=== PATIENT | male | born 1965 | race Caucasian/White ===

== ENCOUNTER → 2020-12-13 08:02 | Outpatient (CLI) | payer SELFPAY, OTHER ==
--- NOTE | 2020-12-13 08:12 | CT_ITS ---
STUDY: CT RIGHT RIGHT LOWER EXTREMITY WITHOUT CONTRAST REASON FOR EXAM: Right knee osteoarthritis, surgical planning. TECHNIQUE: Transaxial CT imaging of the right lower extremity was performed. Coronal and sagittal images were reformatted. Individualized dose optimization techniques were used for this CT. COMPARISON: None. FINDINGS: Knee: There are marginal osteophytes and moderately severe joint space narrowing of the medial femorotibial compartment (coronal reconstructions 27-33). There are small marginal osteophytes of the lateral femoral condyle with preservation of joint space of the lateral femorotibial compartment. There are marginal osteophytes of the patellofemoral compartment with preservation of joint space. Normal proximal tibiofibular articulation. There is a small joint effusion. There are are intra-articular bodies in the distal popliteus tendon sheath (axial images 352-386). The quadriceps tendon is grossly normal. The patellar tendon is grossly normal. Normal Hoffa''s fat pad. There is a popliteal cyst measuring 8.1 cm in length (sagittal reconstruction 50). There is atrophy with fat replacement of the proximal peroneus longus muscle (sagittal reconstruction 20). There is vascular calcification. Hip: There are small marginal osteophytes of the femoral head, subchondral cystic change of the acetabulum and moderate joint space narrowing of the superior medial right hip joint (coronal reconstruction 67). Ankle: There are small marginal osteophytes of the anterior aspect of the tibiotalar articulation without joint space narrowing. Normal posterior subtalar, talonavicular and calcaneocuboid articulations. There is a cyst in the dorsal aspect of the navicular (sagittal reconstruction 28). There is a small plantar calcaneal enthesophyte. CT/Extremity Lower without Contra IMPRESSION: Osteoarthritis of the right knee. Electronically Signed: James Fermin MD at 14:28 EDT Tel , Service support ,
== END ==
PROVIDERS: PCP Orthopaedic Surgery; Referring Provider Orthopaedic Surgery; Visit Provider Orthopaedic Surgery
DX: M17.11 Unilateral primary osteoarthritis, right knee (principal)
CPT/HCPCS: 73700

== ENCOUNTER 2020-12-27 11:31 | Observation (INO) | payer SELFPAY, OTHER ==
[2020-12-27] VITALS (11 sets, daily range): BP systolic 128–151; BP diastolic 76–92; PULSE 60–72; RESP 15–18; TEMP 36.3–36.7; O2SAT 96–100; BMI 36.4
[2020-12-27 10:15] LABS: Bedside Glucose 224 mg/dL (70-110)
[2020-12-27] MEDS: Scopolamine 1mg/72hr Patch 1 PATCH TD (10:17)
[2020-12-27] MEDS: Celecoxib 200 MG Capsule 400 MG PO (10:18)
[2020-12-27] MEDS: Acetaminophen 500 MG Tablet 1000 MG PO ×2 (10:19→17:42)
[2020-12-27 10:40] LABS: Anion Gap 6 (5-15); BUN 12 mg/dL (7-18); BUN/Creat Ratio 15.6 RATIO (10-20); Calcium,Total 8.3 mg/dL (8.5-10.1); Chloride 104 mmol/L (98-107); Creatinine, Serum 0.77 mg/dL (0.70-1.30); EST Glomerular Filtration Rate 110 mL/min (>60); Est Glom Filt Rate - Afr Amer 134 mL/min (>60); Estimated Creatinine Clearance 95.52 ml/min; Glucose 225 mg/dL (74-106); Magnesium 2.2 mg/dL (1.6-2.6); Potassium 4.2 mmol/L (3.5-5.1); Sodium Level 138 mmol/L (136-145)
[2020-12-27] MEDS: Insulin Lispro 100 UNIT/ML INSULN.PEN SC ×2 (10:54→21:44)
[2020-12-27] MEDS: Lactated Ringers 1,000 ML 100 ML IV ×2 (10:55→12:30)
[2020-12-27] MEDS: Cefazolin 2 GM in 0.9% Normal Saline 100 ML IV (11:20)
--- NOTE | 2020-12-27 11:29 | RAD_ITS ---
STUDY: X-RAY - RIGHT KNEE REASON FOR EXAM: Male, 55 years old. Post op -- AP and Lateral xray of operative knee in PACU TECHNIQUE: 2 view(s) of the knee. COMPARISON: None. FINDINGS: Normal visualized distal femur. Normal visualized proximal tibia and fibula. Normal proximal tibiofibular articulation. The patient is status post total knee replacement. There is good alignment. Postoperative soft tissue changes. RAD/Knee 1 or 2 Views IMPRESSION: Status post total knee replacement. There is good alignment. Postoperative soft tissue changes. Electronically Signed: Emanuel Langley MD at 9:01 EDT , Service support ,
--- NOTE | 2020-12-27 11:30 | KNEE_PTH ---
PATIENT: BRUNO CAMPBELL LOC: MS3 U#:[id number] AGE/SX: 55/M ROOM: [facility] [place]12/27/[address]: Dr. Aj Pike MD : 1965 BED: 1 DIS: 12/28/2020 SPEC #: [id number] RECD: 12/27/20 14:32 STATUS: KUSHAL REQ #: [id number] MELQUIADES: 12/27/20 11:[address]: Duarte Resendiz DEPT: SURGICAL PATHOLOGY RECD BY: Chantelle Madison ENTERED: 12/28/20 13:01 SP TYPE: TOTAL KNEE OTHR DR: MD Dr. Arleen Chi MD Dr. Christopher Ranney, MD Dr. Mary Catherine Sementi, MD Saqib Paris Dr., MD Dr. Eric Jopperi, MD Dr. Ashwin Clifford Dr., MD Dr. Joseph Agyepong, MD Dr. James Mooney, MD Dr. Kathryn Lee, DO Dr. Mark Tereletsky, DO Dr. Nana Yaa Koram, MD Dr. Nicholas F Kotsonis, MD Dr. Nhan Luu, MD Dr. Prakash Chand, MD Dr. Paul Nielsen, MD Dr. Rodney Miller, MD Dr. Zachary Boyd, MD Barbara Tickton, MONTSERRAT-Lucero Isbell, SAMUEL Khanna, SAMUEL Campbell, MONTSERRAT-SANDRA Gray PA Tissues: Knee, NOS Procedures: Decalcification bone/plaque Surgery Specimen Level IV Comments: @ Ordering doctor for [facility] edited from to [email or web address] Martin LOPEZ at 12/28/20 144 @ Ordering doctor for LACEY edited from to DR.[email or web address] Martin LOPEZ at 12/28/20 144 @ Submitting doctor edited from to DR.[email or web address] Martin LOPEZ at 12/28/209 HEADER OPERATION: DIEGO, total knee replacement robotic arm assist PRE-OP DIAGNOSIS: Osteoarthritis right knee TISSUE SUBMITTED: Right knee bone and tissue MICROSCOPIC DIAGNOSIS Right knee bone and tissue, total knee replacement/resection: Pieces of bone with degenerative osteoarthritic changes. Fibroadipose tissue, fibroconnective tissue and reactive synovial tissue. LAVERN:elida 12/31/2020 MICROSCOPIC DESCRIPTION Slides are reviewed. GROSS DESCRIPTION Received is one container designated right knee bone and tissue. The specimen consists of multiple fragments of mcginnis-yellow bone measuring in aggregate 15 x 13 x 2 cm. Also in the specimen container are multiple fragments of yellow-white soft tissue measuring in aggregate 2 x 1 x 1 cm. A number of bony fragments contain articular surfaces consistent with tibial plateau and femoral condyle and displaying prominent osteophyte formation, eburnation, and bone erosion. [employer] sections are submitted in two cassettes as follows: 1 - soft tissue, 2 - bone after decalcification. / AM:elida 12/28/20 TC:5 CPT: 80455, 39419
--- NOTE | 2020-12-27 13:27 | PCM.OP.BLANK ---
Problems Associated Problem List Diagnoses (1) Osteoarthritis of right knee: Operative Report Date of Procedure: 12/27/20 Preoperative diagnosis: Right knee severe osteo arthritis Postoperative diagnosis: Same Title of procedure : Right total knee replacement, press fit DAVID Surgeon: Duarte Resendiz MD Cytology Teacher: Lola Bell PA-C Anesthesia: spinal, adductor canal nerve block Anesthesiologist:Dr. Fleming/ MICHELLE Special medications: Ancef, tranexamic acid EBL 50 fluids:1500 specimen : bone Complications: non Indications for surgery: Patient is a [55-year-old male] with osteoarthritis right knee appropriately treated and failed conservative measures and wished to proceed with total knee replacement. Patient was cleared for surgery by the medical doctor and has been evaluated by the anesthesia staff Findings: Intraoperative findings showed severe arthritis of the knee. Patient underwent knee replacement using [employer] triathlon press-fit total knee components David robotic assisted. Size [5] femur, size [4] tibia, [32X10] asymmetric X3 patella, size [4-11 CS] X3 tibial polyethylene insert, knee was nicely balanced. Patella tracked well. Patient underwent standard wound closure in layers. Vicryl and strata fix sutures utilized followed by skin edward. facilities maintenance assistant, physician environmental emergencies assistant, was utilized throughout the entire procedure. They were vital in helping with patient positioning, holding of retractors, exposing the tissues adequately for safe completion of the procedure including cutting of the bone, helping judge clerk appropriate alignment and sizing of the components, implantation of the components, as well as wound closure, bandage application, and safe patient transfer. Without surgical supervisor, physician environmental emergencies assistant, surgical time would have been significantly increased, and surgical outcome could have been less optimal. Description of procedure: The patient was taken to the OR, transferred to the OR table. They were given a spinal anesthetic. Ancef was given IV preoperatively. Tranexamic acid was given IV preoperatively. Well-padded tourniquet was applied to the upper thigh of the operative leg. Nonoperative leg had a LIGIA hose and SCD on throughout. Operative limb was prepped padded and draped in usual orthopedic sterile fashion for the procedure. We began by injecting the pain relieving solution in the anterior superior aspect of the knee region. The limb was exsanguinated, and the tourniquet was applied to 250 mmHg. Made a midline incision through skin, subcutaneous tissue, bringing down us on the extensor mechanism. Medial parapatellar arthrotomy was carried out. Straw-colored joint fluid was evacuated. We raised a sleeve of tissue off the upper medial tibia. Resected some of the infrapatellar fat pad. We remove degenerative medial and lateral meniscus. Removed bone spurs from about the patella. We removed tissue off the anterior aspect of the distal femur. Patella was translated laterally and/or everted as needed throughout the procedure. ACL was resected. PCL was preserved. Collateral ligaments were preserved. Physician placed the retractors and environmental emergencies assistant held retractors protecting above ligaments throughout the procedure. Patella was everted. Measured. Appropriate resection was carried out leaving us between a 13 and 15 mm thick patella. Metal plate was applied. Pins were placed in the femur and tibia at appropriate locations being bicortical. Check pin was placed in the distal femur and upper tibia at appropriate location. [employer] robot was appropriately prepared femur then tibia. Knee was appropriately stressed in 90 degrees of flexion as well as in extension. Robot was appropriately manipulated to allow for approximately 19 to 21 mm of flexion and extension gap. Good sizing and alignment of components was noted on computer. Robotic cuts were carried out cutting the upper tibia first, followed by femoral cuts. Cytology Teacher help with retraction and protecting soft tissues throughout. Bone fragments were removed. we then sized off the upper tibia with the help of the environmental emergencies assistant. We then checked flexion extension gaps finding them to be adequate and equal. Tibial trial with plastic insert was inserted. Next the distal femoral trial was applied. Tibial tray was allowed to freefloat with a 9 mm insert. Knee was flexed and extended an external alignment guide is utilized. Tibial trial was pinned in place. Drill holes were placed into the distal femoral trial and it was removed. Punch was used on the upper tibial component and that was removed. The sclerotic bone was softened with a sharp pin. Bone spurs had been removed from the posterior medial and posterior lateral aspect of the femur while the environmental emergencies assistant lifted up on the distal femur and exposed each compartment. Patella was everted and measured. Patella was sized. Clamp was utilized. 3 drill holes were placed through the clamp held by the environmental emergencies assistant. Trial patella was placed and removed. Bleeding was controlled at the back of the knee with the bovey. Posterior knee soft tissues were carefully injected with pain relieving solution. Components were checked and open. . The bony surfaces cleaned and dried. Tibia, femur, patella press-fit into position. Tibial insert was placed just before placing the femur. Cytology Teacher held retractors exposing the bony surfaces of the tibia and femur which were hammered in position. Patella clamped into position.balancing was again checked with the computer. Checkpoints and femoral and tibial pins removed. we thoroughly irrigated and debrided the knee. Bleeding controlled with the Bovie. Knee was again thoroughly irrigated. Irresept solution utilized. Patella noted to track nicely. We repaired the arthrotomy with a combination of #1 Vicryl and #2 strata fix. We did a mid layer of 1 Vicryl and #0 strata fix running. [place] were utilized on the incision as well as pin sites. Mepilex dressing applied. LIGIA hose and SCDs applied. Patient was awoken from their anesthetic, transferred back to their own bed and recovery room in satisfactory condition. Second dose of IV Tranexamic acid was given while closing wound. Patient was admitted, appropriate IV antibiotic to be utilized as well as medication for DVT prevention. Hopeful discharge in 1-2 days. Hospitalist service and Physical therapy will be consulted. Ancef was used 2 g IV preoperatively. Aspirin 81 mg BID will be used for DVT prevention for 1 month This note was generated with [employer] dictation software. It may contain incorrect words, spelling, and punctuation that were not noted in checking the note before signing.
[2020-12-27 14:31] LABS: Bedside Glucose 169 mg/dL (70-110)
[2020-12-27] MEDS: Lactated Ringers 1,000 ML 125 ML IV (16:01)
--- NOTE | 2020-12-27 18:04 | PN.HOSP_ITS ---
Documented by User: Dixon FLORES 12/27/20 18:13 Subjective Subjective Patient is a 55-year-old male status post right total knee replacement comfortably resting in a chair, alert and orient x3. Patient has no complaints and reports no symptoms and feels that he is recovering well after surgery. Denies chest pain, shortness of breath, palpitations, hemoptysis, sputum production, fever, chills, N/V/D. Objective Data Objective Data Vital Signs: Vital Signs Temp Pulse Resp BP Pulse Ox 97.6 F L 72 18 145/81 H 96 12/27/20 17:23 12/27/20 17:23 12/27/20 17:23 12/27/20 17:23 12/27/20 17:23 Oxygen Flow Rate (L/min) 4 Oxygen Delivery Method Room Air Weight: 225 lb 15.581 oz Body Mass Index (BMI) 36.4 Intake & Output: Intake and Output for Last 24 Hours 12/25/20 12/26/20 12/27/20 23:59 23:59 23:59 Intake Total 1676 / 1676 Output Total 725 / 725 Balance 951 / 951 Lab / Micro Data Result Diagrams: 12/27/20 10:20 12/27/20 10:20 Labs: Laboratory Results - last 24 hr 12/27/20 10:00: Sodium Cancelled, Potassium Cancelled, Chloride Cancelled, Carbon Dioxide Cancelled, Anion Gap Cancelled, BUN Cancelled, Creatinine Cancelled, Estim Creat Clear Calc Cancelled, Est GFR (MDRD) Af Amer Cancelled, Est GFR (MDRD) Non-Af Cancelled, BUN/Creatinine Ratio Cancelled, Glucose Cancelled, Calcium Cancelled, Magnesium Cancelled 12/27/20 10:12: POC Glucose 224 H 12/27/20 10:20: Sodium 138, Potassium 4.2, Chloride 104, Carbon Dioxide 28.0, Anion Gap 6, BUN 12, Creatinine 0.77, Estim Creat Clear Calc 95.52, Est GFR (MDR D) Af Amer 134, Est GFR (MDRD) Non-Af 110, BUN/Creatinine Ratio 15.6, Glucose 225 H, Calcium 8.3 L, Magnesium 2.2 12/27/20 14:18: POC Glucose 169 H Micro: Microbiology 12/24/20 11:10 Interface Orders SARS-CoV-2 Antigen (Rapid) - Final Physical Exam Const alert, oriented x3 and no apparent distress HEENT head/scalp atraumatic, moist oral mucous membranes and oropharynx normal Head and Scalp: normocephalic Eyes EOMs intact bilaterally and conjunctivae normal Neck no lymphadenopathy, supple and no JVD Resp normal respiratory effort, no retractions, no use of accessory muscles and clear to auscultation bilaterally Cardio regular rate, regular rhythm, no murmurs and no JVD GI normal to inspection, nondistended, normoactive bowel sounds and soft to palpation Extremity normal to inspection, full ROM and no clubbing, cyanosis or edema Skin no rashes or lesions noted, no wounds, skin turgor normal and no jaundice Neuro CN's II-XII intact bilaterally Psych affect normal Assessment & Plan Assessment/Plan (1) Diabetes: (2) Osteoarthritis of right knee: PLAN: Patient is a 55-year-old male who presents to the hospital medicine team on consult from Dr. Resendiz of the orthopedics department status post total right knee replacement for severe right knee osteoarthritis. 1) diabetes mellitus Patient does not take any medications to manage as he controls with diet and has managed to lose and keep off about 60 pounds. Plan; bedside glucose testing ordered, calorie controlled diet ordered. 2) severe right knee osteoarthritis Status post right total knee replacement, management per orthopedics department. DVT prophylaxis - SCDs Patient seen by Dixon Kim PA-C, under the supervision of Dr. Gonzalez. Documented by User: Dr. Arleen Gonzalez MD 12/27/20 19:32 Objective Data Lab / Micro Data Result Diagrams: 12/27/20 10:20 12/27/20 10:20
[2020-12-27] MEDS: Cefazolin 1 GM/50 ML BAG IV (18:46)
[2020-12-27 18:58] LABS: Bedside Glucose 169 mg/dL (70-110)
--- NOTE | 2020-12-27 21:35 | NURSING ---
Lab called and said they could not add Hemoglobin A1C to prior labs. Will draw in am.
[2020-12-27] MEDS: Senna/Docusate Sodium 1 Tablet 2 TABLET PO (21:43)
[2020-12-27 22:00] LABS: Bedside Glucose 179 mg/dL (70-110)
[2020-12-28] MEDS: Acetaminophen 500 MG Tablet 1000 MG PO ×2 (01:47→10:04)
[2020-12-28 03:30] VITALS: BP 127/77; PULSE 64; RESP 18; TEMP 36.6; O2SAT 98
[2020-12-28] MEDS: Cefazolin 1 GM/50 ML BAG IV (03:33)
[2020-12-28] MEDS: 0.9% NaCl Peripheral Flush Adult/Peds IV (05:36)
[2020-12-28] MEDS: oxyCODONE 5 MG Tablet PO ×2 (05:43→11:55)
[2020-12-28 06:22] LABS: Hematocrit 41.7 % (40-54); Hemoglobin 13.8 g/dL (13.0-16.5); Mean Corp Hgb Conc 33.1 g/dL (32-36); Mean Corpuscular Hgb 32.8 pg (27.0-32.0); Mean Platelet Vol. 10.8 fl (6.2-12.0); Platelet Count 209 K/mm3 (150-450); RBC Distribution Width SD 43.7 fl (35.1-43.9); Red Blood Count 4.21 M/mm3 (4.6-6.2); White Blood Count 13.6 K/mm3 (4.4-11.0)
[2020-12-28 06:50] LABS: Anion Gap 5 (5-15); BUN 11 mg/dL (7-18); BUN/Creat Ratio 13.3 RATIO (10-20); Calcium,Total 8.1 mg/dL (8.5-10.1); Chloride 103 mmol/L (98-107); Creatinine, Serum 0.82 mg/dL (0.70-1.30); EST Glomerular Filtration Rate 102 mL/min (>60); Est Glom Filt Rate - Afr Amer 124 mL/min (>60); Estimated Creatinine Clearance 89.69 ml/min; Glucose 165 mg/dL (74-106); Sodium Level 137 mmol/L (136-145)
--- NOTE | 2020-12-28 07:14 | PN.ORTHO_ITS ---
Subjective Subjective Patient is postoperative day #1 from right total knee replacement. He denies any chest pain shortness of breath or productive cough. Pain is well controlled with Tylenol, oxycodone. Patient is planning for discharge to home today. He is hoping for in-home physical therapy through a therapist in [place]. Juancho issa will continue to manage his blood sugars as we discussed preoperatively. Objective Data Objective Data Vital Signs: Vital Signs Temp Pulse Resp BP Pulse Ox 97.8 F 64 18 127/77 H 98 12/28/20 03:30 12/28/20 03:30 12/28/20 03:30 12/28/20 03:30 12/28/20 03:30 Oxygen Flow Rate (L/min) 4 Oxygen Delivery Method Room Air Weight: 102.5 kg Body Mass Index (BMI) 36.4 Intake & Output: Intake and Output for Last 24 Hours 12/26/20 12/27/20 12/28/20 23:59 23:59 23:59 Intake Total 4077.67 / 4077.67 925.0 / 925.0 Output Total 2515 / 2515 1030 / 1030 Balance 1562.67 / 1562.67 -105.0 / -105.0 Lab / Micro Data Result Diagrams: 12/28/20 06:04 12/28/20 06:04 Labs: Laboratory Results - last 24 hr 12/27/20 10:00: Sodium Cancelled, Potassium Cancelled, Chloride Cancelled, Carb on Dioxide Cancelled, Anion Gap Cancelled, BUN Cancelled, Creatinine Cancelled, Estim Creat Clear Calc Cancelled, Est GFR (MDRD) Af Amer Cancelled, Est GFR (MDRD) Non-Af Cancelled, BUN/Creatinine Ratio Cancelled, Glucose Cancelled, Calcium Cancelled, Magnesium Cancelled 12/27/20 10:12: POC Glucose 224 H 12/27/20 10:20: Sodium 138, Potassium 4.2, Chloride 104, Carbon Dioxide 28.0, Anion Gap 6, BUN 12, Creatinine 0.77, Estim Creat Clear Calc 95.52, Est GFR (MDRD) Af Amer 134, Est GFR (MDRD) Non-Af 110, BUN/Creatinine Ratio 15.6, Glucose 225 H, Calcium 8.3 L, Magnesium 2.2 12/27/20 14:18: POC Glucose 169 H 12/27/20 17:20: POC Glucose 169 H 12/27/20 21:40: POC Glucose 179 H 12/28/20 06:04: WBC 13.6 H, RBC 4.21 L, Hgb 13.8, Hct 41.7, MCV 99.0 H, MCH 32.8 H, MCHC 33.1, RDW Std Deviation 43.7, RDW Coeff of Abrry 12.0, Plt Count 209, MPV 10.8 12/28/20 06:04: Sodium 137, Potassium 4.0, Chloride 103, Carbon Dioxide 29.0, Anion Gap 5, BUN 11, Creatinine 0.82, Estim Creat Clear Calc 89.69, Est GFR (MDRD) Af Amer 124, Est GFR (MDRD) Non-Af 102, BUN/Creatinine Ratio 13.3, Glucose 165 H, Calcium 8.1 L Micro: Microbiology 12/24/20 11:10 Interface Orders SARS-CoV-2 Antigen (Rapid) - Final Physical Exam Narrative Right knee bandages on clean and dry. Right knee motion is 0 proximally 60 degrees. No calf pain or swelling. Negative Homans' sign. Good active motion toes and ankles. Leg is clinically well aligned. Pulses and sensation are intact. X-rays AP and lateral of right knee shows a press-fit Tamara total knee replacement in good position without obvious loosening failure fracture. Laboratory work and vital signs reviewed Note from hospitalist reviewed Assessment & Plan Assessment/Plan (1) Osteoarthritis of right knee: PLAN: His diagnosis and treatment options discussed with him at length regarding his right total knee replacement and postoperative protocol. We will arrange therapy. Ice. Elevation. Aspirin twice daily 81 mg for DVT prevention. Continue with therapy. Continue to manage his diabetes with the help of his primary care physician if needed. Plan for discharged home later today. Appropriate narcotic will be prescribed based on his diagnosis. Continue medical management per hospitalist. Procedures: Right total knee replacement 12 27 20
--- NOTE | 2020-12-28 07:36 | DCINST_ITS ---
Discharge Instructions Diet Discharge Diet: No restrictions Activity Discharge Activity: Return to Normal Activity and May Not Drive (while taking narcotic pain medications.) May shower in (days): 2 Ice area for (Minutes): 20 (or as needed) Weight Bearing Status: Weight bearing as tolerated Keep extremity elevated above heart level: Operative Extremity Dressing / Incision Call your doctor if your incision/area has: Continuous Slow Oozing, Sudden Increased Bleeding, Increased Pain/ Swelling, Increased Redness and Foul Smelling Discharge Call your doctor if you observe: Fever of 101 or Higher, Coldness, Increased Pain, Inability to urinate, Inability to have a bowel movement, Shortness of breath, Dizziness, Swelling in the ankles, Chest pain, Increased palpitations (irregular heartbeat), Calf discomfort and Uncontrolled pain Suture Line Care: Avoid Pulling/Pushing Remove Dressing in: 5 days Cleanse incision/area with: Soap & Water (after removing bandage in 5 days) Follow Up Care Test Results: Test results from this visit will be discussed in further detail at your follow-up appointment, if applicable. Discharge Plan Admission Admit Date/Time: 12/27/20 11:31 Attending Provider: Aj Pike Primary Care Provider: Maldonado Mercer Consulting Providers: Winnie Garcia ; Arleen Gonzalez ; Juan Pablo Garibay ; Kayce Gil ; Julio Corcoran ; Saqib Mcgarry ; Luis Felipe Gray ; Andrew Fritz ; Ashwin Fritz ; Arsen Saleh ; Maldonado Duffy ; Miriam Wooten ; Enrique Gaming ; Swathi Castro ; Aj Pike ; Antoni Melendez ; Vj Farris ; Petr Oshea ; Cherrie Hu NP ; Patsy Isbell ; Swapna Khanna NP ; Enrique Campbell NP ; Charo Mason ; Rita Rudd Discharge Orders/Prescriptions Prescriptions: New acetaminophen 500 mg Tablet 1,000 mg PO Q8H Qty: 60 RF: 0 aspirin 81 mg Tablet,Chewable 81 mg PO BIDCM Qty: 60 RF: 0 oxycodone 5 mg Tablet 5 - 10 mg PO Q4H PRN PRN (Reason: Pain Score 4-10) 7 Days Qty: 56 RF: 0 sennosides-docusate sodium [Stool Softener-Stimulant Laxat] 8.6-50 mg Tablet 2 tab PO BID PRN (Reason: constipation) Qty: 20 RF: 0 Continued pyridoxine (vitamin B6) 100 mg Tablet 100 mg PO DAILY RF: 0 Trace Minerals 2 cap PO/SL DAILY RF: 0 Held aspirin 81 mg Tablet 81 mg PO DAILY RF: 0 Hold Instructions: for 1 montgh Discontinued garlic Capsule 2,000 mg PO DAILY RF: 0 omega 8-rgi-fto-fish oil [Fish Oil] 1,000 mg (120 mg-180 mg) Capsule 1 cap PO BID RF: 0 Other Ambulatory Orders: Basic Metabolic Profile (BMP) (Routine) Timeframe: 20201227 Facility: [facility] - Location: Laboratory Ordered By: Dr. Luis Felipe Vidal Magnesium (Routine) Timeframe: 20201227 Facility: [facility] - Location: Laboratory Ordered By: Dr. Luis Felipe Vidal Referrals / Follow Up: Maldonado Mercer MD [Primary Care Provider] - Disposition Disposition (needs filled in before D/C Order can be placed): Home, Self Care
[2020-12-28 07:57] LABS: Hemoglobin A1c 6.8 % (3.8-5.6)
[2020-12-28] MEDS: Insulin Lispro 100 UNIT/ML INSULN.PEN SC ×2 (08:03→11:51)
[2020-12-28 08:06] VITALS: BP 131/73; PULSE 76; RESP 18; TEMP 36.8; O2SAT 96
[2020-12-28] MEDS: Aspirin 81 MG TAB.CHEW PO (08:15)
[2020-12-28 08:25] LABS: Bedside Glucose 271 mg/dL (70-110)
--- NOTE | 2020-12-28 08:37 | PN.HOSP_ITS ---
Subjective Subjective Doing well, knee pain is controlled. No issues overnight. Denies any chest pain, shortness of breath. Objective Data Objective Data Vital Signs: Vital Signs Temp Pulse Resp BP Pulse Ox 98.3 F 76 18 131/73 H 96 12/28/20 08:06 12/28/20 08:06 12/28/20 08:06 12/28/20 08:06 12/28/20 08:06 Oxygen Flow Rate (L/min) 4 Oxygen Delivery Method Room Air Weight: 225 lb 15.581 oz Body Mass Index (BMI) 36.4 Intake & Output: Intake and Output for Last 24 Hours 12/27/20 12/28/20 12/29/20 03:59 03:59 03:59 Intake Total 4136.17 / 4136.17 866.5 / 866.5 Output Total 2515 / 2515 1030 / 1030 Balance 1621.17 / 1621.17 -163.5 / -163.5 Lab / Micro Data Result Diagrams: 12/28/20 06:04 12/28/20 06:04 Labs: Laboratory Results - last 24 hr 12/27/20 10:00: Sodium Cancelled, Potassium Cancelled, Chloride Cancelled, Carbon Dioxide Cancelled, Anion Gap Cancelled, BUN Cancelled, Creatinine Cancelled, Estim Creat Clear Calc Cancelled, Est GFR (MDRD) Af Amer Cancelled, Est GFR (MDRD) Non-Af Cancelled, BUN/Creatinine Ratio Cancelled, Glucose Cancelled, Calcium Cancelled, Magnesium Cancelled 12/27/20 10:12: POC Glucose 224 H 12/27/20 10:20: Sodium 138, Potassium 4.2, Chloride 104, Carbon Dioxide 28.0, Anion Gap 6, BUN 12, Creatinine 0.77, Estim Creat Clear Calc 95.52, Est GFR (MDRD) Af Amer 134, Est GFR (MDRD) Non-Af 110, BUN/Creatinine Ratio 15.6, Glucose 225 H, Calcium 8.3 L, Magnesium 2.2 12/27/20 14:18: POC Glucose 169 H 12/27/20 17:20: POC Glucose 169 H 12/27/20 21:40: POC Glucose 179 H 12/28/20 06:04: WBC 13.6 H, RBC 4.21 L, Hgb 13.8, Hct 41.7, MCV 99.0 H, MCH 32.8 H, MCHC 33.1, RDW Std Deviation 43.7, RDW Coeff of Barry 12.0, Plt Count 209, MPV 10.8 12/28/20 06:04: Sodium 137, Potassium 4.0, Chloride 103, Carbon Dioxide 29.0, Anion Gap 5, BUN 11, Creatinine 0.82, Estim Creat Clear Calc 89.69, Est GFR ( MDRD) Af Amer 124, Est GFR (MDRD) Non-Af 102, BUN/Creatinine Ratio 13.3, Glucose 165 H, Calcium 8.1 L 12/28/20 06:04: Hemoglobin A1c 6.8 H 12/28/20 08:01: POC Glucose 271 H Micro: Microbiology 12/24/20 11:10 Interface Orders SARS-CoV-2 Antigen (Rapid) - Final Physical Exam Const alert, oriented x3 and no apparent distress General Appearance: cooperative HEENT normocephalic and moist oral mucous membranes Eyes PERRL, EOMs intact bilaterally and conjunctivae normal Neck supple and no JVD Resp normal respiratory effort, no retractions, no use of accessory muscles and clear to auscultation bilaterally Auscultation: Negative for crackles, rales, rhonchi or wheezes Cardio regular rate, regular rhythm, S1 normal heart sound, S2 normal heart sound and no murmurs GI soft to palpation, non-tender and non-distended; Negative for hepatosplenomegaly Extremity no clubbing, cyanosis or edema Skin no rashes or lesions noted Skin Narrative: Dressing intact Neuro no focal motor deficits and no sensory deficits noted Psych affect normal Appearance: appropriate Assessment & Plan Assessment/Plan (1) Diabetes: (2) Osteoarthritis of right knee: PLAN: 1. Status post right total knee replacement due to osteoarthritis on 12/27/2020 -PT/OT per primary -Pain meds per primary -Aspirin 81 twice daily for DVT prophylaxis postoperatively -Okay for discharge from medical perspective 2. Diet-controlled diabetes -Continue with his current diet DVT: Aspirin 81 twice daily Charges/Coding Visit Charges OBSV E&M: 32571 Subsequent observation care L2
[2020-12-28] MEDS: Senna/Docusate Sodium 1 Tablet 2 TABLET PO (10:03)
--- NOTE | 2020-12-28 10:22 | CASEMGMT ---
N CM Assessment: Face to Face with pt for initial transition planning/care coordination assessment. RN CM introduced self and role at [facility], pt voices understanding and consents to assessment. Pt is A/O x4 and answers all questions appropriately at this time. Pt sitting up in chair with at bedside. Care providers, pharmacy, and demographics verified/updated. Admitting Dx: R TKR with David PCP: Ruslan Specialists:javier Verma Preferred Pharmacy: [facility] while inpatient Insurance: [facility] Package Plan, [facility] Prescription Benefit: no LW/HPOA: Pt states they are working on a LW/DPOA. States they have one done but it needs revised. Pt and are aware that [facility] does not have one on file. LNOK: Britney Campbell, Living Arrangements: Pt lives with and 24 year old son in a three story house with 4 steps to enter with a rail. Pt states he was I in ADL's prior to surgery and denies concerns at home. Transportation: Pt private pays for a chair car driver. DME/HHC/SNF: Pt has a walker, raised toilet seat and toilet rails, shower chair, cane and sock aid. Pt does not use AD normally. Pt has had [facility] in the past and no hx of SNF. Pt prefers to have [facility] at home. TC to [facility] and she will accept pt. Referral faxed at this time. Pt states he would also like a polar care. TC to [facility] in [place], they do not have. TC to [facility] and left message on clinical esol teacher assistant line requesting script for polar care. will excelsior picker this afternoon and obtain at [facility]. Also made aware that pt was set up with [facility] instead of outpt as the script was written for this morning. Pt states no concerns with going home at time of dc. Pt states no further concerns/needs. CM to follow. Advised pt to ask CM if any further question/concerns/needs arise, voices understanding. Pt Goal: Home with [facility] Plan: Home with [facility].
[2020-12-28 12:01] LABS: Bedside Glucose 230 mg/dL (70-110)
[2020-12-28 13:01] VITALS: BP 155/92; PULSE 79; RESP 18; TEMP 36.7; O2SAT 97
[2020-12-28 14:22] VITALS: BP 143/74; PULSE 82; RESP 18; TEMP 36.7; O2SAT 98
== END 2020-12-28 15:14 | disposition home health service (06) ==
LOC: SDC 14:29 → MS3 14:29
PROVIDERS: Family Medicine; Admitting Provider Orthopaedic Surgery; PCP Family Medicine; Referring Provider Orthopaedic Surgery; Visit Provider Family Medicine
PROC: 0SRC0JZ Replacement of Right Knee Joint with Synthetic Substitute, Open Approach (ICD-10-PCS; CPT 27447; principal; 2020-12-27 11:00)
DX: M17.11 Unilateral primary osteoarthritis, right knee (principal); Z79.82 Long term (current) use of aspirin; E78.5 Hyperlipidemia, unspecified; E11.9 Type 2 diabetes mellitus without complications; E66.9 Obesity, unspecified; Z68.36 Body mass index [BMI] 36.0-36.9, adult; R03.0 Elevated blood-pressure reading, without diagnosis of hypertension
CPT/HCPCS: 01402; 27447; 64447; S2900; 36415; 73560; 80048; 82962; 83036; 83735; 85027; 87426; 88305; 88311; 96361; 96365; 96366; 97110; 97162; 97166; 97530; 97535; 99218; C1776; C9803; J7120; A4216; G0378; J2405